=== PATIENT | male | born 1990 | race American Indian/Alaskan Native ===

== ENCOUNTER 2016-12-15 17:23 | Outpatient (CLI) | payer MEDICAID ==
--- NOTE | 2016-12-16 08:44 | XRay Report ---
Right middle finger 3 views. Findings: There is soft tissue swelling distally, but no fractures or other acute findings are seen.
== END 2016-12-15 17:24 | disposition home or self-care (01) ==
LOC: XRAY 17:23
DX: M79.644 Pain in right finger(s) (principal)